=== PATIENT | male | born 1975 | race Caucasian/White ===

== ENCOUNTER 2021-07-16 11:41 | Outpatient (CLI) | payer SELFPAY ==
[2021-07-16 12:06] VITALS: BP 152/94; PULSE 83; RESP 16; TEMP 36.3; O2SAT 98; BMI 28.9
[2021-07-16 12:36] VITALS: BP 157/84; PULSE 82; RESP 17; TEMP 36.4; O2SAT 98
[2021-07-16 13:34] VITALS: BP 143/83; PULSE 84; RESP 16; TEMP 36.7; O2SAT 98
== END 2021-07-16 11:42 | disposition home or self-care (01) ==
LOC: OPS 11:47
PROVIDERS: PCP Nurse Practitioner Family; Visit Provider Nurse Practitioner Family
DX: U07.1 COVID-19 (principal)
CPT/HCPCS: 96365